=== PATIENT | male | born 2000 | race African-American/Black ===

== ENCOUNTER 2022-12-10 16:28 | Emergency (ER) | payer OTHER ==
[2022-12-10 16:36] VITALS: BP 128/68; PULSE 95; RESP 20; TEMP 98.5; BMI 24.7
[2022-12-10 18:28] LABS: HEMATOCRIT 39.4 % (35.4-49); HEMOGLOBIN 12.8 GM/dL (11.7-16.9); MCH 27.9 pg (25.7-33.7); MCHC 32.4 g/dl (32.0-35.9); MEAN CELL VOLUME 86.1 fl (80-96); PLATELET COUNT 314 10^3/uL (134-434); RBC 4.58 M/mm3 (4.00-5.60); RDW 12.6 % (11.9-15.9); WHITE BLOOD COUNT 8.3 K/mm3 (4.0-10.0)
[2022-12-10 18:48] LABS: CALCIUM 9.2 mg/dL (8.5-10.1)
[2022-12-10 18:49] LABS: ALBUMIN 3.8 g/dl (3.4-5.0); BLOOD UREA NITROGEN 13.6 mg/dL (7-18)
[2022-12-10 18:52] LABS: CREATININE 0.8 mg/dL (0.55-1.3)
[2022-12-10 18:53] LABS: BILIRUBIN,TOTAL 0.2 mg/dL (0.2-1); TOT PROT 8.1 g/dl (6.4-8.2)
[2022-12-10 18:56] LABS: THROAT:GRP A STREP DETECTED (NOTDETECTED)
[2022-12-10] MEDS ORDERED: AMOXICILLIN 500 MG CAPSULE (FP) PO ONE (19:17)
[2022-12-10] MEDS ORDERED: AMOXICILLIN 500 MG CAPSULE (FP) ONE (19:43)
== END 2022-12-10 19:48 | disposition home or self-care (01) ==
LOC: JER 16:28
DX: J02.0 Streptococcal pharyngitis (principal)
CPT/HCPCS: 0241U-QW; 36415; 71045-TC-FY; 80053; 85027; 85651; 86140; 87040; 87651; 93005; 93010; 99285-25